=== PATIENT | male | born 1965 | race Caucasian/White ===

== ENCOUNTER 2019-05-23 19:49 | Emergency (ER) | payer OTHER | END 2019-05-23 20:20 | disposition left against medical advice (07) | LOC: UCEAST 19:49 | DX: Z53.8 Procedure and treatment not carried out for other reasons (principal) ==

== ENCOUNTER 2019-05-23 20:39 | Emergency (ER) | payer OTHER ==
[2019-05-23 21:21] VITALS: BP 149/92
== END 2019-05-23 22:10 | disposition left against medical advice (07) ==
LOC: ED 20:39
DX: R10.9 Unspecified abdominal pain (principal); Z53.21 Procedure and treatment not carried out due to patient leaving prior to being seen by health care provider

== ENCOUNTER 2019-05-24 03:59 | Emergency (ER) | payer OTHER ==
[2019-05-24] MEDS ORDERED: Ondansetron INJ* 2 MG/ML VIAL IV ONE (05:41)
[2019-05-24] MEDS ORDERED: NS 0.9% 1000 ML** 1,000 ML IV ONE (05:41)
[2019-05-24] MEDS ORDERED: Morphine 4 MG/ML VIAL (1 ml) 4 MG/ML VIAL IV ONE (05:41)
--- NOTE | 2019-05-24 05:42 | ED ---
GI/ HPI - HPI Summary HPI Summary: 53-year-old male presents with abdominal pain for the past couple days. He states he has had nausea but no vomiting. He has not had a bowel movement in about a day. He states he is not passing any gas. He states he has a dull ache in his lower abdomen. Has had a fever. Denies any chest pain shortness breath or cough. No urinary symptoms. No hematuria. Pain does not radiate to the back. Took some ibuprofen for the pain which did seem to help. Has never had this before. No previous abdominal surgeries. Has no medical conditions. - History of Current Complaint Chief Complaint: EDAbdPain Time Seen by Provider: 05/24/19 05:33 Stated Complaint: ABD PAIN PER PT Pain Intensity: 2 - Allergy/Home Medications Allergies/Adverse Reactions: Allergies Allergy/AdvReac Type Severity Reaction Status Date / Time No Known Allergies Allergy Verified 05/24/19 04:08 Home Medications: Home Medications Pantoprazole Sodium 40 mg PO DAILY 05/24/19 [History Confirmed 05/24/19] PMH/Surg Hx/FS Hx/Imm Hx Endocrine/Hematology History: Denies: Hx Anticoagulant Therapy Respiratory History: Denies: Hx Asthma - Surgical History Surgery Procedure, Year, and Place: TONSILECTOMY Infectious Disease History: No Infectious Disease History: Denies: Traveled Outside the [place] in Last 30 Days - Family History Known Family History: Positive: Non-Contributory - Social History Alcohol Use: None Substance Use Type: Reports: None Have You Smoked in the Last Year: No Review of Systems Negative: Fever Negative: Chest Pain Negative: Shortness Of Breath Positive: Abdominal Pain, Nausea. Negative: Vomiting, Diarrhea All Other Systems Reviewed And Are Negative: Yes Physical Exam Triage Information Reviewed: Yes Vital Signs On Initial Exam: Initial Vitals Temp Pulse Resp BP Pulse Ox 98.5 F 80 16 157/97 95 05/24/19 04:05 05/24/19 04:05 05/24/19 04:05 05/24/19 04:05 05/24/19 04:05 Vital Signs Reviewed: Yes Appearance: Positive: Well-Appearing Skin: Positive: Warm, Dry Head/Face: Positive: Normal Head/Face Inspection Eyes: Positive: Normal, Conjunctiva Clear ENT: Positive: Pharynx normal Respiratory/Lung Sounds: Positive: Clear to Auscultation, Breath Sounds Present Cardiovascular: Positive: Normal, RRR Abdomen Description: Positive: Soft, Other: - tenderness lower abd Bowel Sounds: Positive: Present Musculoskeletal: Positive: Normal Neurological: Positive: Normal Psychiatric: Positive: Normal Diagnostics - Vital Signs Vital Signs Temp Pulse Resp BP Pulse Ox 05/24/19 04:05 98.5 F 80 16 157/97 95 - Laboratory Result Diagrams: 05/24/19 05:51 05/24/19 05:51 Lab Statement: Any lab studies that have been ordered have been reviewed, and results considered in the medical decision making process. - CT abd CT Interpretation Completed By: Radiologist Summary of CT Findings: IMPRESSION: There is a 2 mm calculi in the left ureter at the left ureterovesicular. junction causing mild left hydronephrosis and delay in nephrogram consistent with. obstruction. Re-Evaluation - Re-Evaluation First Eval Re-Evaluation Time: 07:15 Change: Improved Comment: pain better but still present Second Eval Re-Evaluation Time: 09:07 Change: Improved Comment: pain better GIGU Course/Dx - Course Course Of Treatment: 53-year-old male presents with abdominal pain for the past couple days. He states he has had nausea but no vomiting. He has not had a bowel movement in about a day. He states he is not passing any gas. He states he has a dull ache in his lower abdomen. Has had a fever. Denies any chest pain shortness breath or cough. No urinary symptoms. No hematuria. Pain does not radiate to the back. Took some ibuprofen for the pain which did seem to help. Has never had this before. No previous abdominal surgeries. Has no medical conditions. On exam tenderness in lower abdomen greatest in LLQ. wbc 14. crp 50. CT shows ureteral stone 2mm at UVJ with mild hydro. urine shows no uti. will place on flonase, percocet, and zofran. told follow up with urology. patient understand and agrees with plan. - Diagnoses Differential Diagnoses - Male: Diverticulosis, Gastroenteritis (Viral), Urinary Tract Infection Provider Diagnoses: Ureteral stone Discharge - Sign-Out/Discharge Documenting (check all that apply): Patient Departure Patient Received Moderate/Deep Sedation with Procedure: No - Discharge Plan Condition: Good Disposition: HOME Prescriptions: Ondansetron ODT TAB* [Zofran 4 MG Odt TAB*] 4 mg PO Q6H PRN #16 tab.odt PRN Reason: Nausea oxyCODONE/Acetamin 5/325 MG* [Percocet 5/325 TAB*] 1 tab PO Q6H PRN #20 tab MDD 4 PRN Reason: Pain Tamsulosin CAP* [Flomax CAP*] 0.4 mg PO DAILY #10 cap Patient Education Materials: Ureteral Stones (ED) Referrals: Karey Childers MD [Primary Care Provider] - Eduard Jonas MD [Medical Doctor] - Additional Instructions: Take ibuprofen every 6 hours and percocet as needed every 6 hours Take Zofran every 6 hours for nausea as needed Take Flomax daily starting tomorrow, first dose given in ED until stone expelled , make sure stand up slowly Follow up with urology, call office tomorrow for appointment Strain urine until collect stone Return to ED if unable to manage pain at home, develop fever, or any new or worsening symptoms - Billing Disposition and Condition Condition: GOOD Disposition: Home
[2019-05-24 06:02] LABS: ABS Eosinophils 0.2 10^3/ul (0-0.6); ABS Lymphocytes 1.6 10^3/ul (1.0-4.8); ABS Monocytes 1.4 10^3/ul (0-0.8); ABS Neutrophils 10.7 10^3/ul (1.5-7.7); Eosinophil % 1.7 %; Hematocrit 45 % (42-52); Hemoglobin 15.2 g/dL (14.0-18.0); Lymphocyte % 11.6 %; Mean Corpuscular HGB Conc 34 g/dL (31-36); Mean Corpuscular Hemoglobin 29 pg (27-31); Mean Corpuscular Volume 85 fL (80-94); Mean Platelet Volume 8.6 fL (7.4-10.4); Platelet Count 266 10^3/uL (150-450); Red Blood Count 5.35 10^6 /uL (4.18-5.48); Red Cell Distribution Width 14 % (10-15)
[2019-05-24 06:19] LABS: Albumin 4.4 g/dL (3.2-5.2); Albumin/Globulin Ratio 1.4 (1-3); BUN/Creatinine Ratio 11.8 (8-20); C Reactive Protein 50.49 mg/L (<8.01); Calcium 9.4 mg/dL (8.6-10.3); EGFR African American 51.3 (>60); EGFR Non-African American 42.4 (>60); Globulin 3.1 g/dL (2-4); Potassium 4.1 mmol/L (3.5-5.0); Total Bilirubin 1.1 mg/dL (0.2-1.0); Total Protein 7.5 g/dL (6.4-8.9)
[2019-05-24 07:03] LABS: Urine Appearance Clear; Urine Bilirubin Negative (Negative); Urine Blood Negative (Negative); Urine Color Yellow; Urine Glucose Negative (Negative); Urine Ketones 2+ (Negative); Urine Nitrite Negative (Negative); Urine Protein Negative (Negative); Urine Urobilinogen Negative (Negative)
[2019-05-24] MEDS ORDERED: Ketorolac INJ* 30 MG/ML 1 ML VIAL IV PUSH ONE (07:14)
[2019-05-24] MEDS ORDERED: Iodixanol* (CONTRAST) 320 MG/ML 100 ML SDV IV ONE (07:32)
[2019-05-24] MEDS ORDERED: Tamsulosin CAP* 0.4 MG PO ONE (09:03)
[2019-05-24 09:26] VITALS: BP 131/102
== END 2019-05-24 09:25 | disposition home or self-care (01) ==
LOC: ED 03:59
DX: N13.2 Hydronephrosis with renal and ureteral calculous obstruction (principal); Z79.899 Other long term (current) drug therapy
CPT/HCPCS: 36415; 74177; 80053; 81003; 82150; 83605; 83690; 85025; 86140; 96361; 96374; 96375; 99283; J1885; J2270; J2405; Q9967